=== PATIENT | male | born 1975 | race Caucasian/White ===

== ENCOUNTER → 2016-10-26 | Outpatient (CLI) | payer OTHER ==
--- NOTE | 2016-10-26 12:52 | XR ---
Sacroiliac joints HISTORY: Radiculopathy, pain 2 views of both of the sacroiliac joints are submitted on a total of 4 images There is no significant erosion change, ankylosis, hypertrophic change and bone density is normal. IMPRESSION: Normal sacroiliac joints
--- NOTE | 2016-10-26 12:54 | XR ---
Bilateral knees HISTORY: Radiculopathy, pain 2 views of both knees are submitted. No comparisons Bone mineralization, joint spaces and alignment are maintained bilaterally. No evident joint effusion . IMPRESSION: Normal knees
--- NOTE | 2016-10-26 12:56 | XR ---
EXAMINATION TYPE: XR Hip Bilateral and AP pelvis DATE OF EXAM: 10/26/2016 11:19 AM COMPARISON: NONE HISTORY: Pain TECHNIQUE: A single AP view of the pelvis is obtained. Two views of the bilateral hips are obtained o n a total of 5 images. FINDINGS: There is no acute fracture/dislocation evident in the pelvis. The hip and sacroiliac join ts appear symmetric and unremarkable. The overlying soft tissue appears unremarkable. Two views of bilateral hips show no acute fracture or dislocation. No focal lytic or sclerotic lesio n seen in the proximal femurs. The overlying soft tissue is unremarkable. IMPRESSION: There is no acute fracture or dislocation in the pelvis or bilateral hips.
== END ==
LOC: RADXRMAIN 10:20
PROVIDERS: ATTEND Psychiatry & Neurology Pain Medicine
DX: M25.551 Pain in right hip (principal); M25.552 Pain in left hip; M25.561 Pain in right knee; M25.562 Pain in left knee
CPT/HCPCS: 72202; 73521

== ENCOUNTER → 2017-11-03 | Outpatient (CLI) | payer MEDICARE, OTHER ==
[2017-11-03 09:11] LABS: HGB 15.3 gm/dL (13.0-17.5); MCH 29.6 pg (25.0-35.0); MCHC 32.6 g/dL (31.0-37.0); MCV 90.8 fL (80.0-100.0); Platelet Count 245 k/uL (150-450); RBC 5.18 m/uL (4.30-5.90); RDW 13.2 % (11.5-15.5); WBC 6.6 k/uL (3.8-10.6)
[2017-11-03 09:31] LABS: Albumin 4.3 g/dL (3.5-5.0); Anion Gap 11 mmol/L; Calcium 9.6 mg/dL (8.4-10.2); Carbon Dioxide 29 mmol/L (22-30); Chloride 100 mmol/L (98-107); Cholesterol 210 mg/dL (<200); Glucose 91 mg/dL (74-99); HDL Cholesterol 38 mg/dL (40-60); LDL Cholesterol,Calculated 125 mg/dL (0-99); Sodium 140 mmol/L (137-145); Total Bilirubin 0.6 mg/dL (0.2-1.3); Total Protein 7.5 g/dL (6.3-8.2); Triglycerides 234 mg/dL (<150)
[2017-11-03 09:46] LABS: T4, Free (Free Thyroxine) 1.19 ng/dL (0.78-2.19)
[2017-11-03 10:11] LABS: ALT 38 U/L (21-72); AST 15 U/L (17-59); Alkaline Phosphatase 82 U/L (38-126); Blood Urea Nitrogen 11 mg/dL (9-20); Potassium 5.3 mmol/L (3.5-5.1)
--- NOTE | 2017-11-03 13:06 | XR ---
EXAMINATION TYPE: XR chest 2V DATE OF EXAM: 11/03/2017 COMPARISON: NONE HISTORY: R35.0, R05, E78.2 TECHNIQUE: Frontal and lateral views of the chest are obtained. FINDINGS: There is no focal air space opacity, pleural effusion, or pneumothorax seen. The cardiac silhouette size is within normal limits. The osseous structures are intact. IMPRESSION: No acute cardiopulmonary process.
== END | disposition home or self-care (01) ==
LOC: LABWHC1 08:23
PROVIDERS: ATTEND Internal Medicine
DX: Z00.00 Encounter for general adult medical examination without abnormal findings (principal); M54.5 Low back pain; K21.0 Gastro-esophageal reflux disease with esophagitis; R05 Cough; E78.2 Mixed hyperlipidemia; R35.0 Frequency of micturition
CPT/HCPCS: 36415; 71046; 80053; 80061; 84439; 84443; 85027

== ENCOUNTER → 2017-12-21 | Outpatient (CLI) | payer MEDICARE, OTHER ==
[2017-12-21 10:49] LABS: Anion Gap 12 mmol/L; Blood Urea Nitrogen 9 mg/dL (9-20); Carbon Dioxide 24 mmol/L (22-30); Chloride 104 mmol/L (98-107); Potassium 4.3 mmol/L (3.5-5.1); Sodium 140 mmol/L (137-145)
== END | disposition home or self-care (01) ==
LOC: LABWHC1 09:53
PROVIDERS: ATTEND Internal Medicine
DX: E87.5 Hyperkalemia (principal)
CPT/HCPCS: 36415; 80051; 82565; 84520

== ENCOUNTER → 2018-03-01 | Outpatient (CLI) | payer MEDICARE, OTHER ==
--- NOTE | 2018-03-01 14:47 | XR ---
Cervical spine HISTORY: Neck pain 5 views of the cervical spine There is no evident foraminal encroachment. Cervical vertebral bodies show preserved height, alignmen t, and bone mineralization. Disc spaces are maintained. There is spondylosis present at C5-6. Straigh tening of the cervical spine could be due to muscle spasm. Prevertebral soft tissues are normal. IMPRESSION: Cervical spondylosis. MRI may be of benefit.
--- NOTE | 2018-03-01 15:00 | XR ---
Lumbosacral spine HISTORY: Low back pain 5 views of the lumbosacral spine Lumbar vertebral bodies show preserved height, alignment, and bone mineralization. Disc spaces are ma intained with exception of some mild loss at L5-S1. Mild spondylosis noted. IMPRESSION: Mild loss of disc height L5-S1, MRI may be of benefit.
== END | disposition home or self-care (01) ==
LOC: RADXRMAIN 10:26
PROVIDERS: ATTEND Internal Medicine
DX: M51.17 Intervertebral disc disorders with radiculopathy, lumbosacral region (principal); M47.812 Spondylosis without myelopathy or radiculopathy, cervical region
CPT/HCPCS: 72050; 72110

== ENCOUNTER 2018-07-28 16:37 | Emergency (ER) | payer MEDICARE, OTHER ==
[2018-07-28 16:56] VITALS: BP 127/82; PULSE 83; RESP 18; TEMP 96.8
[2018-07-28] MEDS ORDERED: SULFAMETH-TMP DS STARTER PACK 2 TAB BTL PO STA (17:18)
[2018-07-28] MEDS ORDERED: CEPHALEXIN 500MG STARTER PACK 4 CAP BTL PO STA (17:18)
--- NOTE | 2018-07-28 17:23 | ED ---
Skin/Abscess/FB HPI - General Chief complaint: Skin/Abscess/Foreign Body Stated complaint: Abcess on face Time Seen by Provider: 07/28/18 17:03 Source: patient Mode of arrival: ambulatory Limitations: no limitations - History of Present Illness Initial comments: 42-year-old male patient presents to the emergency department today for evaluation of abscess to the left cheek. Patient states that 2-3 days ago he developed a pimple to the left cheek after shaving. States that the area did become larger and more swollen. States he was able to get purulent drainage from the wound a couple days ago. Patient states that the area is still hard and painful so he presented here for further evaluation. Patient denies any current drainage. Denies any fevers or chills with this. He denies any trismus or difficulty swallowing. Denies any nausea or vomiting. States he has had similar lesions in the past, denies ever being told he had MRSA. Patient denies any recent shortness breath, chest pain, abdominal pain, diarrhea , constipation, back pain, numbness, tingling, dizziness, weakness, hematuria, dysuria, urinary urgency, urinary frequency, headache, visual changes, or any other complaints. - Related Data Home Medications Medication Instructions Recorded Confirmed Gabapentin [Neurontin] 600 mg PO TID 12/31/15 01/27/16 oxyCODONE-APAP 10-325MG [Percocet 1 tab PO Q8HR PRN 12/31/15 01/27/16 10-325 mg] Previous Rx's Medication Instructions Recorded Cephalexin [Keflex] 500 mg PO Q6H #40 cap 07/28/18 Sulfamethoxazole/Trimethoprim 1 each PO BID #20 tablet 07/28/18 [Bactrim DS 800-160 mg] Allergies Allergy/AdvReac Type Severity Reaction Status Date / Time Penicillins Allergy Swelling Verified 07/28/18 17:27 Review of Systems ROS Statement: Those systems with pertinent positive or pertinent negative responses have been documented in the HPI. ROS Other: All systems not noted in ROS Statement are negative. 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 History of Any Multi-Drug Resistant Organisms: None Reported Additional Past Surgical History / Comment(s): right hand reconstruction after crush injury, lt hand middle finger plastic knuckle, neck surgery Past Anesthesia/Blood Transfusion Reactions: No Reported Reaction Past Psychological History: No Psychological Hx Reported Smoking Status: Current every day smoker Past Alcohol Use History: Occasional Past Drug Use History: None Reported - Past Family History Mother Family Medical History: Diabetes Mellitus General Exam Limitations: no limitations General appearance: alert, in no apparent distress, other (This is a well- developed, well-nourished adult male patient in no acute distress. Vital signs upon presentation are temperature 96.8F, pulse 83, respirations 18, blood pressure 127/82, pulse ox 98% on room air.) Eye exam: Present: normal appearance, PERRL, EOMI. Absent: scleral icterus, conjunctival injection, periorbital swelling ENT exam: Present: normal exam, normal oropharynx, mucous membranes moist Respiratory exam: Present: normal lung sounds bilaterally. Absent: respiratory distress, wheezes, rales, rhonchi, stridor Cardiovascular Exam: Present: regular rate, normal rhythm, normal heart sounds. Absent: systolic murmur, diastolic murmur, rubs, gallop, clicks Neurological exam: Present: alert, oriented X3, CN II-XII intact Psychiatric exam: Present: normal affect, normal mood Skin exam: Present: warm, dry, intact, normal color. Absent: rash Expanded Type of lesion: Present: abscess (Patient has small 2 cm abscess to the left cheek. There is small area of induration with surrounding erythema. No fluctuance or evidence of drainable abscess.) Course Vital Signs 07/28/18 16:50 Temperature 96.8 F L Pulse Rate 83 Respiratory 18 Rate Blood Pressure 127/82 O2 Sat by Pulse 98 Oximetry Medical Decision Making - Medical Decision Making 42-year-old male patient presented to the emergency department today for evaluation of a lesion to the left cheek. Physical examination did reveal 2 cm area of induration with surrounding erythema. There was central scabbed area. Does appear to be a healing abscess with presence of cellulitis, though does seem mild. There is no fluctuance at this time therefore this was not drained. Patient be started on Bactrim and Keflex. He is instructed to follow-up with his primary care physician for recheck of the lesion in 1-2 days. Return parameters were discussed in detail. He verbalizes understanding and agrees with this plan Disposition Clinical Impression: Cellulitis and abscess of face Disposition: HOME SELF-CARE Condition: Good Instructions: Cellulitis (ED), Abscess (ED) Additional Instructions: Warm compresses to the face at least 4 times per day. Complete antibiotics in full. Follow up with your primary care physician for recheck in 1-2 days. Return immediately for any new, worsening, or concerning symptoms. Prescriptions: Cephalexin [Keflex] 500 mg PO Q6H #40 cap Sulfamethoxazole/Trimethoprim [Bactrim DS 800-160 mg] 1 each PO BID #20 tablet Is patient prescribed a controlled substance at d/c from ED?: No Referrals: Harinder Rush MD [Primary Care Provider] - 1-2 days Time of Disposition: 17:23
== END 2018-07-28 17:35 | disposition home or self-care (01) ==
LOC: EC 16:37
DX: L02.01 Cutaneous abscess of face (principal); L03.211 Cellulitis of face; F17.200 Nicotine dependence, unspecified, uncomplicated; Z79.899 Other long term (current) drug therapy; Z88.0 Allergy status to penicillin
CPT/HCPCS: 99283

== ENCOUNTER 2018-10-25 07:15 | Emergency (ER) | payer MEDICARE, OTHER ==
[2018-10-25 07:24] VITALS: BP 130/87; PULSE 88; RESP 16; TEMP 98
[2018-10-25] MEDS ORDERED: LIDOCAINE 1% INJ 10MG/ML (20 ML MDV) SQ ONE (07:29)
--- NOTE | 2018-10-25 07:31 | ED ---
General Adult HPI - General Chief complaint: Skin/Abscess/Foreign Body Stated complaint: facial abscess Time Seen by Provider: 10/25/18 07:20 Source: patient, RN notes reviewed Mode of arrival: ambulatory Limitations: no limitations - History of Present Illness Initial comments: This is a 42-year-old male who presents emergency department with facial ab scess. Patient states she's had this multiple times in the past. Patient states started a couple days ago and got progressively worse. Patient states it is draining a little but he states in the past as needed to be drained at the hospital. Patient denies any fever chills per patient denies any swelling is as well. Patient denies any difficulty opening his mouth. The abscess is on the left cheek. - Related Data Home Medications Medication Instructions Recorded Confirmed Gabapentin 600 mg PO TID 10/25/18 10/25/18 HYDROcodone/APAP 10-325MG [[place] 1 tab PO HS PRN 10/25/18 10/25/18 10-325] Previous Rx's Medication Instructions Recorded Cephalexin [Keflex] 500 mg PO Q6HR #40 cap 10/25/18 Sulfamethox-Tmp 800-160Mg [Bactrim 1 each PO Q12HR #20 tab 10/25/18 DS 800-160 mg] Allergies Allergy/AdvReac Type Severity Reaction Status Date / Time Penicillins Allergy Swelling Verified 10/25/18 07:33 Review of Systems ROS Statement: Those systems with pertinent positive or pertinent negative responses have been documented in the HPI. ROS Other: All systems not noted in ROS Statement are negative. 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 History of Any Multi-Drug Resistant Organisms: None Reported Additional Past Surgical History / Comment(s): right hand reconstruction after crush injury, lt hand middle finger plastic knuckle, neck surgery Past Anesthesia/Blood Transfusion Reactions: No Reported Reaction Past Psychological History: No Psychological Hx Reported Smoking Status: Current every day smoker Past Alcohol Use History: Occasional Past Drug Use History: None Reported - Past Family History Mother Family Medical History: Diabetes Mellitus General Exam - General Exam Comments Initial Comments: GENERAL Patient is well-developed and well-nourished. Patient is in mild distress. EYES Patient's pupils are equal and round. Extraocular motion is intact SKIN Unremarkable NEURO The patient is alert and oriented 3 PYSCH Patient has normal interpersonal interactions. MUSCULOSKELETAL Patient has an indurated area measuring about 2 cm consistent with an abscess. There is mild erythema to the overlying skin. It does appear that the area has drained a little. Limitations: no limitations Course Vital Signs 10/25/18 07:22 Temperature 98 F Pulse Rate 88 Respiratory 16 Rate Blood Pressure 130/87 O2 Sat by Pulse 96 Oximetry Procedures - Incision & Drainage Consent Obtained: verbal consent Site: face Anesthetic Used: lidocaine 1% I&D Cleaning Method: Betadine Sterile Field Used?: Yes Needle Aspiration Performed?: Yes Irrigation Performed?: No I&D Drainage Obtained: Pus Culture Obtained?: No Complications: pain Patient Tolerated Procedure: well Disposition Clinical Impression: Facial abscess Disposition: HOME SELF-CARE Instructions (If sedation given, give patient instructions): Abscess Incision and Drainage (ED), Abscess (ED) Prescriptions: Sulfamethox-Tmp 800-160Mg [Bactrim DS 800-160 mg] 1 each PO Q12HR #20 tab Cephalexin [Keflex] 500 mg PO Q6HR #40 cap Is patient prescribed a controlled substance at d/c from ED?: No Referrals: None,Stated [Primary Care Provider] - 1-2 days Time of Disposition: 08:11
== END 2018-10-25 08:20 | disposition home or self-care (01) ==
LOC: EC 07:15
DX: L02.01 Cutaneous abscess of face (principal); F17.200 Nicotine dependence, unspecified, uncomplicated; Z79.899 Other long term (current) drug therapy; Z88.0 Allergy status to penicillin
CPT/HCPCS: 10060; 99282

== ENCOUNTER 2019-01-17 22:24 | Emergency (ER) | payer MEDICARE, OTHER ==
[2019-01-17 22:38] VITALS: RESP 18
[2019-01-17] MEDS ORDERED: MECLIZINE 12.5 MG TAB PO STA (23:10)
[2019-01-17] MEDS ORDERED: KETOROLAC 30 MG/ML 1 ML VIAL IVP STA (23:10)
[2019-01-17] MEDS ORDERED: SODIUM CHLORIDE 0.9% 1,000 ML IV ONE (23:10)
[2019-01-17 23:57] LABS: Basophils # (A) 0.1 k/uL (0-0.2); Basophils % (A) 1 %; Eosinophils # (A) 0.2 k/uL (0-0.7); Eosinophils % (A) 2 %; HCT 46.6 % (39.0-53.0); HGB 15.2 gm/dL (13.0-17.5); Lymphocytes # (A) 3.7 k/uL (1.0-4.8); Lymphocytes % (A) 41 %; MCH 28.4 pg (25.0-35.0); MCHC 32.6 g/dL (31.0-37.0); MCV 87.1 fL (80.0-100.0); Mean Platelet Volume 7.1; Monocytes # (A) 0.5 k/uL (0-1.0); Monocytes % (A) 5 %; Neutrophils # (A) 4.4 k/uL (1.3-7.7); Neutrophils % (A) 49 %; Platelet Count 249 k/uL (150-450); RBC 5.35 m/uL (4.30-5.90); RDW 14.8 % (11.5-15.5)
[2019-01-18 00:06] LABS: ALT 37 U/L (21-72); AST 15 U/L (17-59); Albumin 4.2 g/dL (3.5-5.0); Alkaline Phosphatase 66 U/L (38-126); Anion Gap 6 mmol/L; Blood Urea Nitrogen 12 mg/dL (9-20); Carbon Dioxide 27 mmol/L (22-30); Chloride 104 mmol/L (98-107); Glucose 93 mg/dL (74-99); Potassium 4.4 mmol/L (3.5-5.1); Sodium 137 mmol/L (137-145); Total Bilirubin 0.4 mg/dL (0.2-1.3)
--- NOTE | 2019-01-18 00:32 | ED ---
General Adult HPI - General Source: patient Mode of arrival: ambulatory Limitations: no limitations <Dottie Hernandez - Last Filed: 01/18/19 01:35> <July Live - Last Filed: 01/18/19 03:46> - General Chief complaint: Headache Stated complaint: Headache Time Seen by Provider: 01/17/19 22:45 - History of Present Illness Initial comments: 43-year-old male patient presents to the emergency department today for evaluation of headache and dizziness. Patient states that he has had a headache since waking this morning. Patient states he does have a history of migraines and his headache seems similar to his previous headaches. He states that he also developed dizziness throughout the day. Patient states the dizziness worsens or never he moves his head or stands up. Patient states it feels like the room is spinning. Denies any nausea or vomiting. Denies blurred vision, double vision, weakness to his extremities, numbness, or tingling to the extremities. Denies any chest pain or shortness of breath. Patient denies any recent rash, fever, chills, abdominal pain, nausea, vomiting, diarrhea, co nstipation, back pain, hematuria, dysuria, urinary urgency, urinary frequency, or any other complaints. (Dottie Hernandez) - Related Data Home Medications Medication Instructions Recorded Confirmed Gabapentin 600 mg PO TID 10/25/18 01/17/19 HYDROcodone/APAP 10-325MG [[place] 1 tab PO BID PRN 10/25/18 01/17/19 10-325] Previous Rx's Medication Instructions Recorded Meclizine HCl 25 mg PO BID #14 tablet 01/18/19 Allergies Allergy/AdvReac Type Severity Reaction Status Date / Time Penicillins Allergy Swelling Verified 01/17/19 23:07 Review of Systems ROS Other: All systems not noted in ROS Statement are negative. <Dottie Hernandez - Last Filed: 01/18/19 01:35> ROS Other: All systems not noted in ROS Statement are negative. <July Live - Last Filed: 01/18/19 03:46> ROS Statement: Those systems with pertinent positive or pertinent negative responses have been documented in the HPI. 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 History of Any Multi-Drug Resistant Organisms: None Reported Additional Past Surgical History / Comment(s): right hand reconstruction after crush injury, lt hand middle finger plastic knuckle, neck surgery Past Anesthesia/Blood Transfusion Reactions: No Reported Reaction Past Psychological History: No Psychological Hx Reported Smoking Status: Current every day smoker Past Alcohol Use History: None Reported Past Drug Use History: None Reported - Past Family History Mother Family Medical History: Diabetes Mellitus <Dottie Hernandez - Last Filed: 01/18/19 01:35> General Exam Limitations: no limitations General appearance: alert, in no apparent distress, other (Physical well- developed, well-nourished adult male patient in no acute distress. Vital signs upon presentation are temperature 97.4F, pulse 80, respirations 18, blood pressure 126/88, pulse ox 96% on room air.) Eye exam: Present: normal appearance, PERRL, EOMI, nystagmus (Bilateral lateral horizontal gaze nystagmus). Absent: scleral icterus, conjunctival injection, periorbital swelling ENT exam: Present: normal exam, normal oropharynx, mucous membranes moist, TM's normal bilaterally Respiratory exam: Present: normal lung sounds bilaterally. Absent: respiratory distress, wheezes, rales, rhonchi, stridor Cardiovascular Exam: Present: regular rate, normal rhythm, normal heart sounds. Absent: systolic murmur, diastolic murmur, rubs, gallop, clicks GI/Abdominal exam: Present: soft, normal bowel sounds. Absent: distended, tenderness, guarding, rebound, rigid Neurological exam: Present: alert, oriented X3, CN II-XII intact, other (Strength in all 4 remedies is 5/5.) Psychiatric exam: Present: normal affect, normal mood Skin exam: Present: warm, dry, intact, normal color. Absent: rash <Dottie Hernandez M - Last Filed: 01/18/19 01:35> Course Vital Signs 01/17/19 01/18/19 22:36 00:53 Temperature 97.4 F L 97.8 F Pulse Rate 80 63 Respiratory 18 18 Rate Blood Pressure 126/88 112/84 O2 Sat by Pulse 96 98 Oximetry EKG Findings - EKG Comments: EKG Findings:: EKG obtained at 2322 shows normal sinus rhythm with a ventricular rate of 67, VT interval 132, QRS duration 76, QTC 414, QTC 437. No evidence of ST elevation or depression. <Dottie Hernandez - Last Filed: 01/18/19 01:35> Medical Decision Making - Lab Data Result diagrams: 01/17/19 23:30 01/17/19 23:30 <Dottie Hernandez - Last Filed: 01/18/19 01:35> - Lab Data Result diagrams: 01/17/19 23:30 01/17/19 23:30 <July Live - Last Filed: 01/18/19 03:46> - Medical Decision Making 43-year-old male patient presents to the emergency department today for evaluation of headache and dizziness. Physical examination is unremarkable. He is neurologically intact with no focal deficits. Labs reviewed and are unremarkable. EKG showed normal sinus rhythm. Patient was given IV fluids and Antivert as well as IV Toradol for headache relief. Upon reevaluation patient reports improvement of symptoms. Patient states he is able to ambulate without difficulty. States his headache is completely resolved. He'll be discharged home at this time, we did discuss diagnosis of vertigo. He was given a prescription for Antivert. He is instructed follow up with his primary care physician in one to 2 days, he is urged to discuss referral to ENT if symptoms persist. Return parameters were discussed in detail. He verbalizes understanding and agrees with this plan. (Dottie Hernandez) I was available for consultation in the emergency department. The history and physical exam were done by the midlevel provider. I was consulted for this patient's care. I reviewed the case with the midlevel provider and based on th eir presentation of the patient, I agree with the assessment, medical decision making and plan of care as documented. Chart was dictated using [employer] dictation software. Attempts were made to correct any dictation errors however some typographical errors may persist. (July Live) - Lab Data Lab Results 01/17/19 01/17/19 Range/Units 23:30 23:30 WBC 9.0 (3.8-10.6) k/uL RBC 5.35 (4.30-5.90) m/uL Hgb 15.2 (13.0-17.5) gm/dL Hct 46.6 (39.0-53.0) % MCV 87.1 (80.0-100.0) fL MCH 28.4 (25.0-35.0) pg MCHC 32.6 (31.0-37.0) g/dL RDW 14.8 (11.5-15.5) % Plt Count 249 (150-450) k/uL Neutrophils % 49 % Lymphocytes % 41 % Monocytes % 5 % Eosinophils % 2 % Basophils % 1 % Neutrophils # 4.4 (1.3-7.7) k/uL Lymphocytes # 3.7 (1.0-4.8) k/uL Monocytes # 0.5 (0-1.0) k/uL Eosinophils # 0.2 (0-0.7) k/uL Basophils # 0.1 (0-0.2) k/uL Sodium 137 (137-145) mmol/L Potassium 4.4 (3.5-5.1) mmol/L Chloride 104 (98-107) mmol/L Carbon Dioxide 27 (22-30) mmol/L Anion Gap 6 mmol/L BUN 12 (9-20) mg/dL Creatinine 1.16 (0.66-1.25) mg/dL Est GFR (CKD-EPI)AfAm >90 (>60 ml/min/1.73 sqM) Est GFR (CKD-EPI)NonAf 78 (>60 ml/min/1.73 sqM) Glucose 93 (74-99) mg/dL Calcium 9.0 (8.4-10.2) mg/dL Total Bilirubin 0.4 (0.2-1.3) mg/dL AST 15 L (17-59) U/L ALT 37 (21-72) U/L Alkaline Phosphatase 66 (38-126) U/L Total Protein 7.0 (6.3-8.2) g/dL Albumin 4.2 (3.5-5.0) g/dL Disposition Is patient prescribed a controlled substance at d/c from ED?: No Time of Disposition: 00:31 <Dottie Hernandez - Last Filed: 01/18/19 01:35> <July Live - Last Filed: 01/18/19 03:46> Clinical Impression: Headache, Vertigo Disposition: HOME SELF-CARE Condition: Good Instructions (If sedation given, give patient instructions): Vertigo (ED), Acute Headache (ED) Additional Instructions: Increase fluids. Take medications as directed. Follow up with your primary care physician for recheck in 1-2 days. If dizziness persists discuss referral to ears, nose, throat specialist. Return to the emergency department medially for any new, worsening, or concerning symptoms. Prescriptions: Meclizine HCl 25 mg PO BID #14 tablet Referrals: None,Stated [Primary Care Provider] - 1-2 days
[2019-01-18 00:54] VITALS: BP 112/84; PULSE 63; TEMP 97.8
== END 2019-01-18 00:54 | disposition home or self-care (01) ==
LOC: EC 22:24
DX: R51 Headache (principal); R42 Dizziness and giddiness; F17.200 Nicotine dependence, unspecified, uncomplicated; Z79.899 Other long term (current) drug therapy; Z88.0 Allergy status to penicillin
CPT/HCPCS: 36415; 93005; 80053; 85025; 99283; 96374; 96361; J1885

== ENCOUNTER 2020-01-31 14:25 | Emergency (ER) | payer MEDICARE, OTHER ==
[2020-01-31 14:31] VITALS: BP 122/87; PULSE 110; RESP 18; TEMP 97.9
--- NOTE | 2020-01-31 14:33 | ED ---
Abdominal Pain HPI - General Chief Complaint: Abdominal Pain Stated Complaint: Abd pain Time Seen by Provider: 01/31/20 14:33 Source: patient Mode of arrival: ambulatory Limitations: no limitations - History of Present Illness Initial Comments: Patient is a 44-year-old male presenting to the emergency room with a chief complaint nausea vomiting diarrhea. Patient states initially he developed suprapubic abdominal pain that was dull in nature but has gradually increased in severity over the last few days. Patient also reports this morning's developed nausea with one episode of nonbilious, nonbloody vomiting. Patient also reports 1 episode of diarrhea. Patient reports most of the pain is now in the epigastric as well as the suprapubic region. Patient states he occasionally has acid reflux type symptoms but has not been officially diagnosed. Patient denies previous abdominal surgeries. Denies hematuria, hematochezia or melena. Denies testicular pain or swelling, penile discharge. Denies taking any medication to alleviate the symptoms. Denies chest pain or shortness of breath. - Related Data Home Medications Medication Instructions Recorded Confirmed Gabapentin 600 mg PO TID 10/25/18 01/17/19 HYDROcodone/APAP 10-325MG [[place] 1 tab PO BID PRN 10/25/18 01/17/19 10-325] Previous Rx's Medication Instructions Recorded Meclizine HCl 25 mg PO BID #14 tablet 01/18/19 Ondansetron Odt [Zofran Odt] 4 mg PO Q8HR PRN #10 tab 01/31/20 Pantoprazole Sodium [Protonix] 20 mg PO AC-BRKFST 30 Days #30 01/31/20 tablet. Allergies Allergy/AdvReac Type Severity Reaction Status Date / Time Penicillins Allergy Swelling Verified 01/31/20 14:31 Review of Systems ROS Statement: Those systems with pertinent positive or pertinent negative responses have been documented in the HPI. ROS Other: All systems not noted in ROS Statement are negative. 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 History of Any Multi-Drug Resistant Organisms: None Reported Additional Past Surgical History / Comment(s): right hand reconstruction after crush injury, lt hand middle finger plastic knuckle, neck surgery Past Anesthesia/Blood Transfusion Reactions: No Reported Reaction Past Psychological History: No Psychological Hx Reported Smoking Status: Current every day smoker Past Alcohol Use History: None Reported Past Drug Use History: None Reported - Past Family History Mother Family Medical History: Diabetes Mellitus General Exam Limitations: no limitations General appearance: alert, in no apparent distress Head exam: Present: atraumatic, normocephalic, normal inspection Eye exam: Present: normal appearance, PERRL Pupils: Present: normal accommodation ENT exam: Present: normal exam, normal oropharynx, mucous membranes moist Neck exam: Present: normal inspection, full ROM. Absent: tenderness Respiratory exam: Present: normal lung sounds bilaterally. Absent: respiratory distress, wheezes Cardiovascular Exam: Present: regular rate, normal rhythm, normal heart sounds GI/Abdominal exam: Present: soft, tenderness (Epigastric and suprapubic tenderness. Negative Acosta sign or McBurney point tenderness.). Absent: distended, guarding Extremities exam: Present: normal inspection, full ROM, normal capillary refill, other (+2 ulnar and radial pulses bilaterally.) Back exam: Present: normal inspection, full ROM. Absent: tenderness Neurological exam: Present: alert, oriented X3 Psychiatric exam: Present: normal affect, normal mood Skin exam: Present: warm, dry, intact, normal color Course Vital Signs 01/31/20 14:28 Temperature 97.9 F Pulse Rate 110 H Respiratory 18 Rate Blood Pressure 122/87 O2 Sat by Pulse 97 Oximetry Medical Decision Making - Medical Decision Making Patient is a 44-year-old male presenting to the emergency department with a chief complaint of nausea vomiting and diarrhea. On exam patient has mild epigastric and suprapubic tenderness. No history of abdominal surgeries. CBC reveals mild leukocytosis of 11.1 K which I suspect is secondary to the vomiting. CMP is mostly unremarkable. UA shows no signs of hematuria or urinary tract infection. Patient given analgesia, fluids and antacids. On reevaluation patient reports improvement in symptoms. I suspect patient has gastroenteritis. Patient will be discharged with Protonix For suspected acid reflux. Patient advised to follow-up with his primary care physician. Return parameters were thoroughly discussed the patient is understanding and agreeable. Case discussed with physician. - Lab Data Result diagrams: 01/31/20 14:55 01/31/20 14:55 Lab Results 01/31/20 01/31/20 01/31/20 Range/Units 14:55 14:55 14:55 WBC 11.1 H (3.8-10.6) k/uL RBC 5.55 (4.30-5.90) m/uL Hgb 16.6 (13.0-17.5) gm/dL Hct 50.4 (39.0-53.0) % MCV 90.8 (80.0-100.0) fL MCH 30.0 (25.0-35.0) pg MCHC 33.0 (31.0-37.0) g/dL RDW 13.2 (11.5-15.5) % Plt Count 260 (150-450) k/uL Neutrophils % 73 % Lymphocytes % 18 % Monocytes % 5 % Eosinophils % 3 % Basophils % 0 % Neutrophils # 8.2 H (1.3-7.7) k/uL Lymphocytes # 2.0 (1.0-4.8) k/uL Monocytes # 0.5 (0-1.0) k/uL Eosinophils # 0.3 (0-0.7) k/uL Basophils # 0.0 (0-0.2) k/uL Sodium 136 L (137-145) mmol/L Potassium 4.4 (3.5-5.1) mmol/L Chloride 108 H (98-107) mmol/L Carbon Dioxide 18 L (22-30) mmol/L Anion Gap 10 mmol/L BUN 15 (9-20) mg/dL Creatinine 0.99 (0.66-1.25) mg/dL Est GFR (CKD-EPI)AfAm >90 (>60 ml/min/1.73 sqM) Est GFR (CKD-EPI)NonAf >90 (>60 ml/min/1.73 sqM) Glucose 113 H (74-99) mg/dL Calcium 9.7 (8.4-10.2) mg/dL Total Bilirubin 0.7 (0.2-1.3) mg/dL AST 18 (17-59) U/L ALT 39 (4-49) U/L Alkaline Phosphatase 88 (38-126) U/L Total Protein 8.7 H (6.3-8.2) g/dL Albumin 5.1 H (3.5-5.0) g/dL Lipase 163 (23-300) U/L Urine Color Yellow Urine Appearance Clear (Clear) Urine pH 6.0 (5.0-8.0) Ur Specific [place] 1.022 (1.001-1.035) Urine Protein 1+ H (Negative) Urine Glucose (UA) Negative (Negative) Urine Ketones Negative (Negative) Urine Blood Negative (Negative) Urine Nitrite Negative (Negative) Urine Bilirubin Negative (Negative) Urine Urobilinogen 2.0 (<2.0) mg/dL Ur Leukocyte Esterase Negative (Negative) Urine RBC 1 (0-5) /hpf Urine WBC 3 (0-5) /hpf Ur Squamous Epith Cells <1 (0-4) /hpf Hyaline Casts 69 H (0-2) /lpf Urine Mucus Many H (None) /hpf - EKG Data EKG Comments: Sinus rhythm, no ST or T-wave changes. Ventricular rate 98, UT 118, QRS 76, QTc 441. Disposition Clinical Impression: Gastroenteritis, Abdominal pain Disposition: HOME SELF-CARE Condition: Stable Instructions (If sedation given, give patient instructions): Abdominal Pain (ED) Additional Instructions: Take prescribed medication as directed. Follow with the primary care. Return to emergency department if symptoms worsen. Prescriptions: Pantoprazole Sodium [Protonix] 20 mg PO AC-BRKFST 30 Days #30 tablet.dr Is patient prescribed a controlled substance at d/c from ED?: No Referrals: Jimmy Arriaga MD [Primary Care Provider] - 1-2 days Time of Disposition: 15:28
[2020-01-31] MEDS ORDERED: SODIUM CHLORIDE 0.9% 1,000 ML IV STA (14:40)
[2020-01-31] MEDS ORDERED: ONDANSETRON 4 MG/2 ML VIAL IVP STA (14:40)
[2020-01-31] MEDS ORDERED: KETOROLAC 30 MG/ML 1 ML VIAL IVP STA (14:40)
[2020-01-31] MEDS ORDERED: FAMOTIDINE 20 MG/2 ML VIAL IV STA (14:41)
[2020-01-31 15:13] LABS: Basophils % (A) 0 %; Eosinophils # (A) 0.3 k/uL (0-0.7); Eosinophils % (A) 3 %; HCT 50.4 % (39.0-53.0); HGB 16.6 gm/dL (13.0-17.5); Lymphocytes % (A) 18 %; MCV 90.8 fL (80.0-100.0); Mean Platelet Volume 7.4; Monocytes # (A) 0.5 k/uL (0-1.0); Monocytes % (A) 5 %; Neutrophils # (A) 8.2 k/uL (1.3-7.7); Neutrophils % (A) 73 %; Platelet Count 260 k/uL (150-450); RBC 5.55 m/uL (4.30-5.90); RDW 13.2 % (11.5-15.5); WBC 11.1 k/uL (3.8-10.6)
[2020-01-31 15:19] LABS: Appearance,Urine Clear (Clear); Bilirubin,Urine Negative (Negative); Blood,Urine Negative (Negative); Color,Urine Yellow; Glucose,Urine (UA) Negative (Negative); Hyaline Casts,Urine 69 /lpf (0-2); Ketones,Urine Negative (Negative); Leukocyte Esterase,Urine Negative (Negative); Mucus,Urine Many /hpf; Nitrite,Urine Negative (Negative); Protein,Urine 1+ (Negative); RBC,Urine 1 /hpf (0-5); Specific Gravity,Urine 1.022 (1.001-1.035); Squamous Epithelial Cell,Urine <1 /hpf (0-4); WBC,Urine 3 /hpf (0-5)
[2020-01-31 15:22] LABS: ALT 39 U/L (4-49); AST 18 U/L (17-59); African American GFR (CKD) >90 (>60 ml/min/1.73 sqM); Albumin 5.1 g/dL (3.5-5.0); Alkaline Phosphatase 88 U/L (38-126); Anion Gap 10 mmol/L; Blood Urea Nitrogen 15 mg/dL (9-20); Calcium 9.7 mg/dL (8.4-10.2); Carbon Dioxide 18 mmol/L (22-30); Chloride 108 mmol/L (98-107); Glucose 113 mg/dL (74-99); Non-African American GFR(CKD) >90 (>60 ml/min/1.73 sqM); Potassium 4.4 mmol/L (3.5-5.1); Sodium 136 mmol/L (137-145); Total Bilirubin 0.7 mg/dL (0.2-1.3); Total Protein 8.7 g/dL (6.3-8.2)
[2020-01-31] MEDS ORDERED: OXYMETAZOLINE 0.05% NASL SPRAY 1 SPRAY BOTTLE NASAL STA (15:25)
== END 2020-01-31 16:18 | disposition home or self-care (01) ==
LOC: EC 14:25
DX: K52.9 Noninfective gastroenteritis and colitis, unspecified (principal); F17.200 Nicotine dependence, unspecified, uncomplicated; Z79.899 Other long term (current) drug therapy; Z88.0 Allergy status to penicillin
CPT/HCPCS: 36415; 93005; 80053; 83690; 85025; 81001; 99284; 96374; 96375 ×2; 96361; J2405; J1885

== ENCOUNTER → 2021-02-23 | Outpatient (CLI) | payer MEDICARE, OTHER ==
--- NOTE | 2021-02-23 16:56 | MR ---
MR brain without contrast HISTORY: Bilateral visual field defect Multiplanar multisequence imaging obtained through the brain Correlation to prior MR brain 09/03/2015 There is no restricted diffusion. There is no hemorrhage or hydrocephalus. There are normal vascular flow voids. Orbits show symmetric appearance. The corpus callosum, pituitary, cervical medullary junc tion, cerebellopontine angles are stable. There is a partially empty sella. Brain signal is maintaine d. IMPRESSION: Normal brain MRI.
== END | disposition home or self-care (01) ==
LOC: RADMRIMAIN 14:33
PROVIDERS: ATTEND Ophthalmology
DX: H53.483 Generalized contraction of visual field, bilateral (principal)
CPT/HCPCS: 70551

== ENCOUNTER → 2022-12-08 | Outpatient (CLI) | payer MEDICARE, OTHER ==
--- NOTE | 2022-12-08 10:31 | XR ---
EXAMINATION TYPE: XR ankle complete LT DATE OF EXAM: 12/08/2022 COMPARISON: NONE HISTORY: Pain FINDINGS: Three views of the ankle demonstrate the ankle mortise to be intact and symmetric. The joint spaces are preserved. The osseous structures are intact. A calcaneal spur. Small spur along the medial mal leolus. IMPRESSION: 1. No definite acute fracture or dislocation, if symptoms persist follow-up study in 7 to 10 days wou ld be suggested.
--- NOTE | 2022-12-08 10:32 | XR ---
EXAMINATION TYPE: XR foot complete LT DATE OF EXAM: 12/08/2022 COMPARISON: NONE HISTORY: Pain TECHNIQUE: Three views are submitted. FINDINGS: The osseous structures are intact. There is no acute fracture or dislocation. Joint spaces are p reserved. There is a spur at the Achilles insertion of the calcaneus. IMPRESSION: 1. Spur involving the Achilles insertion on the calcaneus.
== END | disposition home or self-care (01) ==
LOC: RADXRMAIN 09:42
PROVIDERS: ATTEND Internal Medicine
DX: G57.62 Lesion of plantar nerve, left lower limb (principal); M77.32 Calcaneal spur, left foot; M79.672 Pain in left foot